=== PATIENT | male | born 1970 | race Caucasian/White ===

== ENCOUNTER 2016-09-03 12:23 | Inpatient (IN) | payer MEDICARE, OTHER ==
--- NOTE | ~2016-09-03 | HP ---
Unit #: [id number] #: [id number] Patient: UDAY HERRON [id number] [address] [place], [place] [address] [id number] I MR#: [id number] NAME: UDAY HERRON. ROOM: [facility] Age: Sex: M Admission Date: 09/03/2016 : 1970 Attending Physician: Pam Aguila M.D. Primary Care Physician: Francisco J Ellison M.D. HISTORY AND PHYSICAL CHIEF COMPLAINT Right foot wound. HISTORY OF PRESENT ILLNESS The patient is a 46-year-old, poor controlled diabetic male who is almost 6 months status post a right tibial sesamoidectomy for a recalcitrant ulceration under the tibial sesamoid. This has slowly been healing with wound care and oral antibiotics. Three weeks ago, the patient developed a wound on the medial aspect of the first metatarsal, which now probes to bone. Radiographs are concerning for possible early erosive changes of the first metatarsal head. The patient has also already undergone a second toe amputation and second ray amputation. We are therefore planning transmetatarsal amputation with Achilles tendon lengthening as the risk of recurrent ulceration under the residual remaining three metatarsal heads is very high. PAST MEDICAL HISTORY Remarkable for diabetes, diabetic neuropathy, kidney stones, hypercholesterolemia, and hypertension. PAST SURGICAL HISTORY Multiple bilateral foot surgeries to include right foot surgery, as noted above, and left plantar exostectomy. HOME MEDICATIONS 1. Aspirin. 2. Benzonatate. 3. Fluoxetine. 4. Insulin. 5. HCTZ. 6. Ibuprofen. 7. Lisinopril. 8. Metformin. 9. Simethicone. 10. Simvastatin. 11. Venlafaxine. 12. Viagra. 13. Ambien. ALLERGIES None. SOCIAL HISTORY The patient does not smoke or drink. Unit #: [id number] #: [id number] Patient: UDAY HERRON REVIEW OF SYSTEMS Otherwise unremarkable. PHYSICAL EXAMINATION GENERAL: This is a chronically ill appearing, middle-aged male in no acute distress. HEENT: Pharynx is clear. NECK: Supple without masses. HEART: Reveals a regular sinus rhythm without murmurs or gallops. LUNGS: Clear. ABDOMEN: Soft and nontender without masses or organomegaly. EXTREMITIES: Evaluation of the right foot shows an absent second toe. He has marked hallux valgus. There is a 1 cm diameter wound overlying the medial first metatarsal head, which probes to bone. No active drainage is noted. He also has a large ulceration on the plantar aspect of the first metatarsal head, which does not probe to bone. There is surrounding hyperkeratotic rim. Sensation is decreased in a stocking distribution. Pulses are intact. DIAGNOSTIC STUDIES IMAGING: Radiographs of the right foot show a partial second ray amputation with absence of the second toe. There is plate fixation of the third metatarsal and patient has questionable erosive changes in the medial aspect of the first metatarsal head and medial base of the proximal phalanx. 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 PLAN The patient will undergo right transmetatarsal amputation with a percutaneous Achilles tendon lengthening. The procedure was discussed along with risks of bleeding, infection, nerve damage, need for further surgery in the future, prolonged recovery time, deep venous thrombosis, pulmonary embolism, anesthetic complications, failure of the wound to heal, need for higher level amputation, and persistent ulceration. He understands above risks and agrees to proceed. He understands he will have to be nonweightbearing for 4 weeks postoperatively. Dictated by Bigg Armenta/jeffy TD: 09/03/2016 06:41 JOB #: [id number] Unit #: [id number] #: [id number] Patient: UDAY HERRON HISTORY AND PHYSICAL Page 1 of 1 X Ambrose Aguila MD X HISTORY AND PHYSICAL
--- NOTE | ~2016-09-03 | OR ---
Unit #: [id number] #: [id number] Patient: UDAY HERRON [id number] [address] [place], [place] [address] [id number] I MR#: [id number] NAME: UDAY HERRON. ROOM: [facility] Date of Procedure: 09/03/2016 Admission Date: 09/03/2016 Surgeon: Pam Aguila M.D. : 1970 Attending Physician: Pam Aguila M.D. Primary Care Physician: Francisco J Ellison M.D. OPERATIVE REPORT PREOPERATIVE DIAGNOSIS Right first metatarsal head osteomyelitis. POSTOPERATIVE DIAGNOSIS Right first metatarsal head osteomyelitis. PROCEDURES PERFORMED 1. Right transmetatarsal amputation (08054). 2. Right percutaneous Achilles tendon lengthening (46551). ASSISTANTS Jono DPM. ANESTHESIA General. INDICATIONS FOR SURGERY The patient is a 46-year-old poorly controlled insulin-dependent diabetic with diabetic neuropathy and bilateral Charcot feet. He has undergone previous right second toe and second ray amputation and elevating osteotomy of the third metatarsal shaft. He has also undergone tibial sesamoidectomy for recalcitrant ulceration approximately 7 months ago. The patient then developed a medial ulceration over the first metatarsal head from a hallux valgus deformity, which now extends to bone. The patient has significant infection of the foot and is therefore to undergo transmetatarsal amputation. My concern is that if we just takeoff his first ray and his great toe, that the forces concentrated on the remaining three metatarsals would lead to a medial ulceration and problems, therefore transmetatarsal amputation is indicated. DESCRIPTION OF PROCEDURE The patient was taken to the operating room and placed in supine position and general anesthetic was induced. The right foot was identified as the correct operative extremity during the time-out procedure. The IV antibiotic protocol was followed. The right leg was then prepped and draped in the usual sterile fashion. The leg was exsanguinated and the thigh tourniquet inflated to 300 mmHg. A #11 knife blade was used to perform a percutaneous Achilles tendon lengthening. The medial half of the Achilles tendon was severed percutaneously 2.5 cm proximal to the insertion. A second lateral hemisection was performed 2.5 cm proximal to the first hemisection. A Unit #: [id number] #: [id number] Patient: UDAY HERRON third medial hemisection was performed 2.5 cm proximal to the second hemisection. The ankle was then gently dorsiflexed until 15 degrees of dorsiflexion was easily obtained. Dorsal and plantar fish-mouth incisions were then made over the forefoot. Dissection proceeded directly down to the metatarsal shafts, which were exposed subperiosteally. The microsagittal saw was then used to cut the first, fourth, and fifth metatarsals with care taken to preserve the parabola of metatarsal length. There was a plate and screws on the third metatarsal from the previously performed osteotomy, and unfortunately we did not have the proper screwdriver to allow for removal of the plate, therefore a large sail cutter was used to cut both the plate and the metatarsal. The remaining plate and two screws were left in place in the proximal metatarsal shaft and posed no problems and were not prominent. The plantar soft tissues were then sharply divided and the forefoot was removed. Aerobic and anaerobic cultures were taken. The wounds were copiously irrigated. The deep tissues were then repaired with 2-0 Vicryl. Subcutaneous tissue was closed with 3-0 Vicryl, and the skin was closed with 3-0 nylon horizontal mattress sutures. It should be noted the tourniquet was released prior to wound closure to achieve hemostasis. The posterior percutaneous Achilles wounds were closed with Steri-Strips. Xeroform gauze, dressing, sponges, Webril, and a posterior fiberglass splint were applied. The patient was then awakened in the operating room and transported to the recovery room in stable condition. ESTIMATED BLOOD LOSS Minimal. COMPLICATIONS None. SPECIMENS Cultures. TOURNIQUET TIME 30 minutes. Dictated byBigg Alvarez/ervin TD: 09/03/2016 23:25 JOB #: [id number] Unit #: [id number] #: [id number] Patient: UDAY HERRON OPERATIVE REPORT Page 1 of 1 X Ambrose Aguila MD X PROCEDURE OPERATIVE NOTE
--- NOTE | ~2016-09-03 | EKG ---
PATIENT: UDAY HERRON UNIT #: [id number] Ventricular Rate: 84 BPM Atrial Rate: 84 BPM P-R Interval: 194 ms QRS Duration: 80 ms Q-T Interval: 352 ms QTC Calculation(Bezet): 415 ms P [place]: 23 degrees Calculated R [place]: 45 degrees Calculated T [place]: 52 degrees Diagnosis Line: Normal sinus rhythm Diagnosis Line: Normal ECG Diagnosis Line: When compared with ECG of 03-SEP-2016 13:21, Diagnosis Line: (unconfirmed) Diagnosis Line: No significant change was found Diagnosis Line: Confirmed by YONY DUQUE MD ([id number]) on 09/04/2016 Diagnosis Line: 10:07:20 AM INTERPRETING MD: NETO ANDREWS
--- NOTE | ~2016-09-03 | CO ---
Unit #: [id number] #: [id number] Patient: UDAY HERRON [id number] [address] [place], [place] [address] [id number] I MR#: [id number] NAME: UDAY HERRON. ROOM: [facility] Age: 46 Sex: M Admission Date: 09/03/2016 : 1970 Attending Physician: Pam Aguila M.D. Primary Care Physician: Francisco J Ellison M.D. Consultation Date: 09/04/2016 CONSULTATION REPORT REASON FOR CONSULTATION Diabetic management. HISTORY This 46-year-old male with AODM, neuropathy, hypertension, was admitted to the orthopedic service yesterday for a right transmetatarsal amputation. The patient was diagnosed with likely osteomyelitis of the first metatarsal head and had previous surgeries on the right foot. He therefore, underwent a right transmetatarsal amputation yesterday, estimated blood loss was 50 mL. The patient's perioperative vital signs were stable, except for transient hypotension with a blood pressure of 80/45. At this time the patient is able to tolerate a diet. He tells me that he ran out of his lancets at home, and has not been checking his sugars as frequently as he should. He also makes mention of vague nonradiating substernal chest discomfort, which is nonpleuritic, ongoing for the past 2 1/2 hours prior to my arrival. He denies history of cardiac disease. PAST MEDICAL HISTORY 1. Recently diagnosed obstructive sleep apnea. 2. Depression. 3. History of osteomyelitis of the right foot in the past, positive for Pseudomonas requiring surgeries. 4. AODM since 2010 with peripheral neuropathy. 5. Essential hypertension. 6. Hyperlipidemia. 7. Multiple bilateral food surgeries. 8. Oral surgery. 9. Kidney stones. ALLERGIES None. HOME MEDICATIONS 1. Zocor 10 mg daily. 2. NovoLog 27 units in the morning and at lunch and 30 units with dinner. 3. Metformin 1,000 mg b.i.d. 4. Magnesium 400 mg daily. 5. Lisinopril 20 mg daily. 6. Zinc 220 mg daily. 7. Neurontin 300 mg daily. 8. Aspirin 81 mg daily. 9. Januvia 100 mg daily. Unit #: [id number] #: [id number] Patient: UDAY HERRON FAMILY HISTORY Positive for diabetes. SOCIAL HISTORY The patient lives alone. He is a lifelong nonsmoker. Does not drink alcohol. REVIEW OF SYSTEMS Notable for underlying right posterior neck pain intermittent for the past 6 to 12 months. Vague chest discomfort. Some throat discomfort following patient's intubation. Multiple foot surgeries, diabetes, neuropathy, hyperlipidemia, above mentioned surgeries. Depression, obstructive sleep apnea. All other systems were reviewed and are otherwise negative. PHYSICAL EXAMINATION GENERAL: Pleasant 46-year-old male who currently is in no acute distress. VITAL SIGNS: Temperature 98.2, pulse 89, respirations 18, blood pressure 126/69, O2 saturation is 98% on room air. HEENT: Eyes - PERRLA, extraocular muscles are intact. Pharynx is benign, although difficult for me to view the oropharynx. NECK: Supple without adenopathy or thyromegaly. CHEST: Clear. CARDIAC: Normal S1 and S2. Soft systolic murmur. ABDOMEN: Bowel sounds are present. No hepatosplenomegaly, tenderness or masses. EXTREMITIES: Right foot has a bandage. Left foot with good pedal pulse. Charcot joint noted. No open ulcers. NEUROLOGIC: Patient is awake, alert and oriented. His cranial nerves are intact. He is able to move all of his extremities. DIAGNOSTIC STUDIES LABORATORY STUDIES: Yesterday, hematocrit 39.7, normal white count, platelet count and MCV. SMA 7 yesterday - glucose 172, CARDIOLOGY STUDIES: Present EKG, which was done stat, normal sinus rhythm rate 84, normal appearing, unchanged from before. ASSESSMENT 1. Postop right transmetatarsal amputation for osteomyelitis. 2. AODM with peripheral neuropathy. 3. Hyperlipidemia. 4. Hypertension. 5. Vague substernal chest discomfort, which is nonpleuritic, ongoing of the past 2 1/2 hours. EKG is completely normal. No associated cardiac symptoms. 6. Intermittent right posterior neck pain for the past 6-12 months. PLANS 1. Hold metformin for two days. 2. Continue Januvia and change usual insulin to sliding scale insulin until we make sure patient is able to take decent p.o. 3. Will give 1 dose of Mylanta. 4. With a vague substernal chest discomfort, and will add cardiac enzymes to this morning labs, which I will ask to be drawn now. 5. BMP will also be drawn. 6. Social work to see for lancets. 7. Further workup depending on above. Unit #: [id number] #: [id number] Patient: UDAY HERRON 8. I talked with the patient telling him that his posterior neck discomfort ongoing for the past 6 to 12 month intermittently should be evaluated as an outpatient with his primary care physician. Dictated by... Ruby Hicks M.D. AML/ts TD: 09/04/2016 05:26 JOB #: [id number] CONSULTATION REPORT Page 1 of 1 X Ruby Hicks MD X CONSULTATION REPORT
--- NOTE | ~2016-09-03 | EKG ---
PATIENT: UDAY HERRON UNIT #: [id number] Ventricular Rate: 86 BPM Atrial Rate: 86 BPM P-R Interval: 172 ms QRS Duration: 78 ms Q-T Interval: 348 ms QTC Calculation(Bezet): 416 ms P [place]: 17 degrees Calculated R [place]: 37 degrees Calculated T [place]: 48 degrees Diagnosis Line: Normal sinus rhythm Diagnosis Line: Normal ECG Diagnosis Line: When compared with ECG of 24-MAR-2013 15:02, Diagnosis Line: No significant change was found Diagnosis Line: Confirmed by YONY DUQUE MD ([id number]) on 09/04/2016 Diagnosis Line: 10:04:03 AM INTERPRETING MD: NETO ANDREWS
--- NOTE | ~2016-09-03 | DS ---
Unit #: [id number] #: [id number] Patient: UDAY HERRON [id number] [address] [place], [place] [address] [id number] I MR#: [id number] NAME: UDAY HERRON. ROOM: [facility] Age: 46 Sex: M Admission Date: 09/03/2016 : 1970 Discharge Date: 09/05/2016 Attending Physician: Pam Aguila M.D. Primary Care Physician: Francisco J Ellison M.D. DISCHARGE SUMMARY CHIEF COMPLAINT Right foot infection. HISTORY OF PRESENT ILLNESS This 46-year-old poorly controlled insulin dependent diabetic with diabetic neuropathy has bilateral Charcot feet. He has undergone previous right second toe and second ray amputation as well as elevating osteotomies of third metatarsal shaft. He has undergone tibial sesamoidectomy seven months ago for recalcitrant plantar ulceration under the first metatarsal head. The patient has now developed a medial ulceration with infection which extends down to bone overlying the medial aspect of the first metatarsal head. He has erythema and cellulitis. He is therefore to undergo a transmetatarsal amputation and Achilles tendon lengthening. HOSPITAL COURSE The patient was taken to the operating room on September 03, 2016, where he underwent right foot transmetatarsal amputation and percutaneous Achilles tendon lengthening. He had a stable postoperative course. His intraoperative cultures of the remaining proximal first metatarsal shaft were negative. He was seen by internal medicine and they managed his blood sugars. His dressing was changed on the second postoperative day. Wounds were healing well. He remained afebrile with stable vital signs. His white blood cell count was 8000, hemoglobin 11.2, hematocrit 34.5 on the second postoperative day. He was ready for discharge on the second postoperative day. FINAL DIAGNOSIS Right foot infection. OPERATION PERFORMED Right transmetatarsal amputation and Achilles tendon lengthening on September 03, 2016. DISPOSITION AND RECOMMENDATIONS 1. The patient is discharged home. He will keep the dressing clean, dry, and intact. Will continue ice and elevation. He will remain strictly nonweightbearing for four weeks. 2. Followup in my office in 10-14 days for dressing change, suture removal, and application of a cast. DISCHARGE MEDICATIONS 1. Percocet 5/325 one or two p.o. q.4 hours p.r.n. pain dispense 60. 2. Aspirin 325 mg one p.o. b.i.d. for 12 days. Unit #: [id number] #: [id number] Patient: UDAY HERRON Dictated byBigg Alvarez/roderick TD: 09/05/2016 09:24 JOB #: [id number] DISCHARGE SUMMARY Page 1 of 1 X Ambrose Aguila MD X DISCHARGE SUMMARY
[~2016-09-03 12:23] MED LIST: ASPIRIN81 M1 PO; CEFEPIME-D2 GM/50 ML IV; CIPRO PO; CLEOCIN PO; GLUCOPHAGE500 MG PO; LANTUS100 U/ML SUBQ; LASIX PO; LISINOPRIL PO; LISINOPRIL2.5 MG PO; LORTAB 5/500 TA1 TA2 PO; LOVENOX40 MG/0.4 INJ; METFORMIN; METFORMIN PO; MILK OF MAGNESIA PO; NO MEDICATIONS; NOVOLOG; NOVOLOG100 U/M1 SQ; NOVOLOG100 U/ML; NOVOLOG100 U/ML SUBQ; ONGLYZA5 MG PO; PERCOCET5/325 PO; PERCOCET7.5 PO; PROTONIX PO; SANTYL15 G1 TP; SIMVASTATIN10 MG PO; TYLENOL #2 PO; TYLENOL #3 PO; ZOCOR10 MG PO
[2016-09-03] MEDS ORDERED: ZOCOR10 MG PO (12:52)
[2016-09-03] MEDS ORDERED: NOVOLOG FL100 UNIT/1 (12:53)
[2016-09-03] MEDS ORDERED: MAGNESIUM400 M1 PO (12:54)
[2016-09-03] MEDS ORDERED: METFORMIN HCL500 M3 PO (12:54)
[2016-09-03] MEDS ORDERED: LISINOPRIL20 MG PO (12:55)
[2016-09-03] MEDS ORDERED: NEURONTIN300 MG PO (12:55)
[2016-09-03] MEDS ORDERED: ASPIRIN EC81 M1 PO (12:55)
[2016-09-03] MEDS ORDERED: ZINC SULFATE220 M1 PO (12:55)
[2016-09-03] MEDS ORDERED: JANUVIA PO (12:56)
[2016-09-03 13:35] LABS: HEMATOCRIT 39.7 % (38.0-50.0); MEAN CORPUSCULAR HEMOGLOBIN 27.8 PG (28-34); MEAN CORPUSCULAR HGB CONC 32.7 g/dL (30-36); MEAN PLATELET VOLUME 8.6 FL (6.5-11.5); RED BLOOD COUNT 4.67 X10e (3.90-5.60); RED CELL DISTRIBUTION WIDTH 13.9 % (11.0-15.5); WHITE BLOOD COUNT 9.2 X10e3 (4.0-10.5)
[2016-09-03 13:58] LABS: CALCIUM SERUM 9.2 mg/dL (8.4-10.2); CREATININE SERUM 0.8 mg/dL (0.6-1.4); GLOM FILT RATE Estimated 107.2 mL/min (>60); POTASSIUM 4.4 mmol/L (3.5-5.1)
[2016-09-04 03:21] LABS: BASOPHIL# 0.1 X10e3 (0-0.3); BASOPHIL% 0.7 % (0-2.5); DIFF IND NO; EOSINOPHIL# 0.1 X10e3 (0-0.7); HEMATOCRIT 35.6 % (38.0-50.0); HEMOGLOBIN 11.7 gm/dL (13.0-16.0); LYMPHOCYTE# 2.1 X10e3 (1.0-3.5); LYMPHOCYTE% 22.6 % (17.0-45.0); MEAN CELL VOLUME 85.8 FL (83-96); MEAN CORPUSCULAR HEMOGLOBIN 28.1 PG (28-34); MEAN CORPUSCULAR HGB CONC 32.8 g/dL (30-36); MEAN PLATELET VOLUME 8.5 FL (6.5-11.5); MONOCYTE# 0.8 X10e3 (0-1.0); MONOCYTE% 8.6 % (3.0-12.0); NEUTROPHIL# 6.3 X10e3 (1.5-7.1); NEUTROPHIL% 67.1 % (40-75); PLATELET COUNT 298 X10e3 (140-420); RED BLOOD COUNT 4.15 X10e (3.90-5.60); RED CELL DISTRIBUTION WIDTH 13.5 % (11.0-15.5); WHITE BLOOD COUNT 9.4 X10e3 (4.0-10.5)
[2016-09-04 03:43] LABS: BUN/CREATININE RATIO 15.55; CALCIUM SERUM 8.3 mg/dL (8.4-10.2); CREATININE SERUM 0.9 mg/dL (0.6-1.4); GLOM FILT RATE Estimated 102.1 mL/min (>60); POTASSIUM 4.2 mmol/L (3.5-5.1)
[2016-09-04 04:01] LABS: %MB 0.2 % (0.0-4.0); MB 2.8 ng/ml
[2016-09-05 03:52] LABS: HEMATOCRIT 34.5 % (38.0-50.0); HEMOGLOBIN 11.2 gm/dL (13.0-16.0); MEAN CELL VOLUME 85.4 FL (83-96); MEAN CORPUSCULAR HEMOGLOBIN 27.8 PG (28-34); MEAN CORPUSCULAR HGB CONC 32.6 g/dL (30-36); MEAN PLATELET VOLUME 8.9 FL (6.5-11.5); RED BLOOD COUNT 4.04 X10e (3.90-5.60); RED CELL DISTRIBUTION WIDTH 13.9 % (11.0-15.5)
[2016-09-05 04:26] LABS: ALBUMIN SERUM 3.1 g/dL (3.5-5.0); BILIRUBIN,TOTAL 0.7 mg/dL (0.2-2.0); CALCIUM SERUM 8.1 mg/dL (8.4-10.2); CREATININE SERUM 0.9 mg/dL (0.6-1.4); GLOM FILT RATE Estimated 102.1 mL/min (>60); POTASSIUM 4.3 mmol/L (3.5-5.1); PROTEIN TOTAL SERUM 6.8 g/dL (6.0-8.3)
[2016-09-05] MEDS ORDERED: PERCOCET5/325 PO (11:51)
[2016-09-05] MEDS ORDERED: BAYER ASPIRIN325 M1 PO (11:52)
== END 2016-09-05 13:10 | disposition home or self-care (01) | DRG 617 ==
LOC: CSUR 12:23 → CPACUOF 20:10 → CSUR 20:30 → C4B 20:30 → CPACUOF 20:30 → C4B 09-05 13:10
PROVIDERS: Internal Medicine; Orthopaedic Surgery
PROC: 0Y6M0ZC Detachment at Right Foot, Partial 3rd Ray, Open Approach (ICD-10-PCS; 2016-09-03)
PROC: 0L8V0ZZ Division of Right Foot Tendon, Open Approach (ICD-10-PCS; 2016-09-03)
PROC: 0Y6M0Z9 Detachment at Right Foot, Partial 1st Ray, Open Approach (ICD-10-PCS; principal; 2016-09-03 16:30)
PROC: 0Y6M0ZD Detachment at Right Foot, Partial 4th Ray, Open Approach (ICD-10-PCS; 2016-09-03 16:30)
PROC: 0Y6M0ZF Detachment at Right Foot, Partial 5th Ray, Open Approach (ICD-10-PCS; 2016-09-03 16:30)
DX: E11.69 Type 2 diabetes mellitus with other specified complication (principal); M86.9 Osteomyelitis, unspecified; E11.40 Type 2 diabetes mellitus with diabetic neuropathy, unspecified; M62.82 Rhabdomyolysis; E11.65 Type 2 diabetes mellitus with hyperglycemia; L03.115 Cellulitis of right lower limb; E11.621 Type 2 diabetes mellitus with foot ulcer; Z79.4 Long term (current) use of insulin; K59.00 Constipation, unspecified; K31.9 Disease of stomach and duodenum, unspecified; K21.9 Gastro-esophageal reflux disease without esophagitis; I10 Essential (primary) hypertension; Z79.82 Long term (current) use of aspirin; Z87.442 Personal history of urinary calculi; E78.00 Pure hypercholesterolemia, unspecified; G47.33 Obstructive sleep apnea (adult) (pediatric); Z83.3 Family history of diabetes mellitus; L97.519 Non-pressure chronic ulcer of other part of right foot with unspecified severity; E11.610 Type 2 diabetes mellitus with diabetic neuropathic arthropathy
CPT/HCPCS: 80048; 80053; 82550; 82553; 82947; 84484; 85025; 85027; 87070; 87075; 87205; 88307; 88311; 93005; 97161; G8978-GP; G8979-GP; G8980-GP; J0690; J1815; J2250; J2270; J3010